=== PATIENT | female | born 1960 | race Caucasian/White ===

== ENCOUNTER → 2023-10-17 10:04 | Outpatient (REF) | payer OTHER, SELFPAY | LOC: HWRAD 10:04 | PROVIDERS: ATTENDING PHYSICIAN Nurse Practitioner | DX: M85.80 Other specified disorders of bone density and structure, unspecified site (principal) | CPT/HCPCS: 77080 ==

== ENCOUNTER → 2023-11-04 09:12 | Outpatient (REF) | payer OTHER, SELFPAY | LOC: HWWDC 09:12 | PROVIDERS: ATTENDING PHYSICIAN Nurse Practitioner | DX: Z12.31 Encounter for screening mammogram for malignant neoplasm of breast (principal) | CPT/HCPCS: 77063; 77067 ==

== ENCOUNTER 2024-06-07 08:52 | Emergency (ER) | payer OTHER, SELFPAY ==
[2024-06-07] VITALS (13 sets, daily range): BP systolic 110–157; BP diastolic 69–93; PULSE 60–91
--- NOTE | 2024-06-07 09:15 | ED.GENMED ---
History of Present Illness
General
Chief Complaint: Fainting/Passed Out
Source: patient
Exam Limitations: none
Time Seen by Provider: 06/07/24 09:15
Nursing documentation reviewed up to this point in time: agreed with
History of Present Illness
History of Present Illness:
Patient presents to ED secondary to witnessed syncopal episode, while she was at [employer] this morning. Patient states that while she was standing up, she felt lightheaded and sweaty, and sat down. However, her symptoms persisted and she
subsequently lost consciousness, lasting approximately couple minutes, with spontaneous resolution of symptoms. Denies confusion after waking up. Denies preceding chest palpitations, shortness of breath, chest pain, or nausea sensation. At the
time evaluation ED, patient states that her symptoms have resolved completely. Of note, patient states that she gave 1 pint of blood to [facility], which usually does every 60 days. Approximately 3 hours after giving blood yesterday
afternoon, patient does report similar lightheaded sensation, which she experienced, when she went upstairs to grab her book to read. She followed discharge instructions from [facility], and laid down, with her legs raised along with water,
which resolved her symptoms completely. Denies recent illness. Denies recent change in medications diet. In addition, this morning, patient does report having taken her blood pressure medication, without checking her blood pressure. Patient also
states that she has not been drinking of water during the day. Of note, over the past 8 months, she has approximate lost 80 pounds, with dietary changes along with medication. Denies previous history of passing out. Denies family history of heart
disease. Denies recent travel or surgery. Denies recent illness.
Review of Systems
Review of Systems
Allergies reviewed?: Yes
All Other Systems: ROS reviewed and negative except as documented in HPI and ROS
Constitutional: Reports no symptoms
EENT: Reports no symptoms
Respiratory: Reports no symptoms
Cardiac: Reports diaphoresis and syncope
ABD/GI: Reports no symptoms
Musculoskeletal: Reports no symptoms
Skin: Reports no symptoms
Neurological: Reports dizzy; Denies headache or weakness
Phy Exam
Physical Exam
Physical Exam:
Physical Exam
General: no apparent distress, not acutely ill. afebrile
Head: nc/at. eomi. no nystagmus noted.
Neck: supple. no meningeal signs.
Heart: s1/s2 regular rate and rhythm, no murmur.
Lungs: no acute respiratory distress. clear bilaterally
Abdomen: normal bowel sounds. not tender.
Neuro: alert and oriented x 3. no focal neurological deficits. normal speech. normal gait.
Skin: no rash
Psychiatric: well kept. interactive and cooperative
Extremities: no edema. no calf tenderness.
Course
Orders/Labs/Results
Orders:
Orders
06/07/24 09:00
ECG [Electrocardiogram (*1)] Urgent
Reason for Study: Syncope
EKG- Treatment ONCE
06/07/24 09:15
Orthostatic VS- Treatment ONCE
06/07/24 09:48
CMP [Comprehensive Metabolic Panel] Urgent
Complete Blood Count/With Diff Urgent
Ferritin Urgent
Comment: ADD ON
Iron Urgent
Total Iron Binding Urgent
Troponin I Urgent
06/07/24 10:39
EKG- Treatment ONCE
06/07/24 10:41
D-Dimer Urgent
06/07/24 12:00
Electrocardiogram (*1) Urgent
Reason for Study: Vertigo / Dizzy
06/07/24 12:07
Troponin I Urgent
06/07/24 12:44
Add On- LAB Urgent
Tests Added?: iron, ferritin, tibc
Abnormal Lab Results
06/07/24
09:48
Hgb 10.9 L g/dL
(12.0-16.0)
Hct 34.3 L %
(37.0-47.0)
MCV 80.5 L fL
(81.0-99.0)
MCH 25.6 L pg
(27.0-31.0)
MCHC 31.8 L g/dL
(33.0-37.0)
RDW 15.7 H %
(11.5-14.5)
Lymphocytes % 17.3 L %
(20.5-51.1)
% Saturation 12 L %
(20-50)
Ferritin 6.6 L ng/ml
(11.1-264.0)
Total Protein 6.1 L g/dl
(6.3-8.2)
06/07/24 09:48
06/07/24 09:48
Vital Signs
Initial and Last Documented VS:
Initial Vital Signs
Temp Pulse Resp BP Pulse Ox
98.1 F 68 18 145/84 98
06/07/24 08:52 06/07/24 08:52 06/07/24 08:52 06/07/24 08:52 06/07/24 08:52
Last Documented Vital Signs
Temp Pulse Resp BP Pulse Ox
98.1 F 68 23 110/90 98
06/07/24 08:52 06/07/24 13:00 06/07/24 13:00 06/07/24 13:00 06/07/24 13:00
MDM/Problems Addressed
MDM/Problems Addressed:
Blood work reviewed and discussed with patient, including anemia. Patient's last blood work noted in March 2024 revealed hemoglobin of 11.9. It is possible that with her recent dietary changes along with donation of blood, patient may have
experienced an acute blood loss, which may have contributed to her symptoms last night and this morning. Otherwise, less concern for any arrhythmia or any other cardiac etiology at this time. Patient will be discharged home in stable condition,
with recommendation to follow-up with her primary care visit for reevaluation, including repeat blood work within next 2 to 3 weeks. Advised caution when changing positions acutely over the next 48 hours. Recommended increased fluid intake along
with proper diet. Patient expresses understanding at the time of discharge.
*EKG
Interpreted by ED Provider?: Yes
EKG Intrepretation Date: 06/07/24
EKG Intrepretation Time: 09:15
Heart Rate: 3
Rate: normal
Rhythm: sinus
[place]: normal axis
Interval: normal interval
*Critical Care Note
Total Time (30-74mins, 75-104mins- exclusive of procedures): Not Applicable
ED Attending Note
-
Portions of this chart may have been created with voice recognition software.� Occasional wrong word or��sound alike� substitutions may have occurred due to the inherent limitations of voice recognition software.
Discharge Plan
Departure
Patient Disposition: Home (Routine Discharge)
Date of Disposition: 06/07/24
Time of Disposition: 13:03
Patient with high blood pressure during this ER visit?: Yes
Discharge Problem:
Syncope, Anemia
Instructions: Syncope (Fainting) (DC), Anemia in adults, possibly from low iron - ED discharge instructions
Referrals:
Evelyn Gallardo DO [Family Provider] -
Activity Restrictions/Additional Instructions:
As discussed, please follow-up with your primary care today for reevaluation, including repeat blood work in 2 to 3 weeks.
Interventions
Interventions:
*Risk Screen - Suicide Last Done: 06/07/24 09:30
*General Assessment Last Done: 06/07/24 09:30
*Neglect/Abuse Screening Last Done: 06/07/24 09:30
*ED- Fall Risk Assessment Last Done: 06/07/24 09:30
*ED COVID-19 Vaccine History Last Done: 06/07/24 09:30
*Nursing Disposition Last Done: 06/07/24 13:17
ED- Cardiac Assessment Last Done: 06/07/24 09:30
ED- Neurological Assessment Last Done: 06/07/24 09:30
Discharge Date and Time
Discharge Date/Time: 06/07/24 13:17
Print Language: AZERI
[2024-06-07 09:56] LABS: % Basophils 0.4 % (0-2); % Eosinophils 0.3 % (0-6); % Immature Granulocytes 0.1 % (0-0.5); % Lymphocytes 17.3 % (20.5-51.1); % Neutrophils 74.9 % (42.2-75.2); Absolute Lymphocytes 1.2 10^3/uL (1.2-3.4); Absolute Monocytes 0.5 10^3/uL (0.1-0.6); Absolute Neutrophils 5.4 10^3/uL (1.4-6.5); Hematocrit 34.3 % (37.0-47.0); Hemoglobin 10.9 g/dL (12.0-16.0); Mean Corp Hgb Conc. 31.8 g/dL (33.0-37.0); Mean Corpuscular Hgb 25.6 pg (27.0-31.0); Mean Corpuscular Volume 80.5 fL (81.0-99.0); Mean Platelet Volume 10.3 fL (7.4-10.4); Nucleated Red Blood Cells % 0 %; Platelet Count 274 10^3/uL (130-400); Red Blood Cell Count 4.26 10^6/uL (4.20-5.40); Red Cell Dist. Width 15.7 % (11.5-14.5); White Blood Cell Count 7.2 10^3/uL (4.8-10.8)
[2024-06-07 10:11] LABS: ALT (SGPT) 14 U/L (0-35); AST (SGOT) 19 U/L (14-36); Albumin 3.7 g/dl (3.5-5.0); Alkaline Phosphatase 84 U/L (38-126); Blood Urea Nitrogen 9 mg/dl (7-17); Calcium 9.2 mg/dl (8.4-10.2); Carbon Dioxide 26 mmol/L (22-30); Chloride 104 mmol/L (98-107); Glucose 73 mg/dl (70-99); Potassium 3.7 mmol/L (3.5-5.1); Sodium 137 mmol/L (135-145); Total Bilirubin 0.5 mg/dl (0.2-1.3); Total Protein 6.1 g/dl (6.3-8.2); eGFR > 60.00
[2024-06-07 10:20] LABS: Troponin I < 0.012 ng/ml
[2024-06-07 11:24] LABS: D-Dimer < 0.27 ug/mlFEU (0.00-0.50)
[2024-06-07 12:52] LABS: Troponin I < 0.012 ng/ml
[2024-06-07 13:16] LABS: Iron 40 ug/dl (37-170)
[2024-06-07 13:25] LABS: Percent Saturation 12 % (20-50); Total Iron Binding Capacity 319 ug/dl (265-497)
[2024-06-07 14:09] LABS: Ferritin 6.6 ng/ml (11.1-264.0)
== END 2024-06-07 13:17 | disposition home or self-care (01) ==
LOC: EMR 08:52
PROVIDERS: Emergency Medicine; EMERGENCY PHYSICIAN Emergency Medicine; FAMILY PHYSICIAN Internal Medicine
DX: R55 Syncope and collapse (principal); D64.9 Anemia, unspecified; I10 Essential (primary) hypertension
CPT/HCPCS: 99283; 80053; 82728; 83540; 83550; 84484; 85025; 85379; 93005

== ENCOUNTER 2024-11-04 12:30 | Inpatient (IN) | payer OTHER, SELFPAY ==
--- NOTE | 2024-10-06 15:31 | CM ---
Demographics: Confirmed
Living situation: two story home with friend
Support Person Post Operatively: Friend Sina, who lives with patient and will be her support
History of
VN: No
SNF: No
Outpatient: Appointment at [facility] 11/06
Has patient purchased required equipment: walker, cane, gel wraps.
PCP: Active
Pharmacy: [facility]
Post Operative Discharge Plan:Home with friend, and outpatient PT.
[2024-10-12 08:56] LABS: Hematocrit 38.4 % (37.0-47.0); Hemoglobin 12.3 g/dL (12.0-16.0); Mean Corp Hgb Conc. 32.0 g/dL (33.0-37.0); Mean Corpuscular Volume 80.8 fL (81.0-99.0); Platelet Count 297 10^3/uL (130-400); Red Cell Dist. Width 15.8 % (11.5-14.5)
[2024-10-12 09:31] LABS: ALT (SGPT) 23 U/L (0-35); AST (SGOT) 26 U/L (14-36); Albumin 4.2 g/dl (3.5-5.0); Alkaline Phosphatase 71 U/L (38-126); Blood Urea Nitrogen 14 mg/dl (7-17); Calcium 9.5 mg/dl (8.4-10.2); Carbon Dioxide 27 mmol/L (22-30); Chloride 104 mmol/L (98-107); Glucose 70 mg/dl (70-99); Potassium 3.9 mmol/L (3.5-5.1); Sodium 138 mmol/L (135-145); Total Protein 6.8 g/dl (6.3-8.2); eGFR > 60.00
[2024-10-12 09:57] LABS: Glycohemoglobin (HgbA1c) 5.0 % (4.0-5.6)
[2024-10-12 11:16] VITALS: BMI 30.6
[2024-10-12 12:21] LABS: Vitamin D, 25-OH*** 40.5 ng/mL (30-80)
[2024-10-27 09:13] VITALS: BMI 30.6
[2024-11-04] VITALS (10 sets, daily range): BP systolic 114–141; BP diastolic 53–92
[2024-11-04] MEDS: NORMOSOL-R/PLASMALYTE-A 1000 IV ×2 (12:46→19:54)
[2024-11-04] MEDS: CELEBREX 200 MG PO (12:49)
[2024-11-04] MEDS: TYLENOL 650 MG PO ×2 (12:49→19:57)
--- NOTE | 2024-11-04 14:43 | W.PN.UPDATE ---
Update Note
Progress Note Update
R knee OA s/p R TKA w/ Dr Trejo 11/04/24
- EARLY DISCHARGE
DVT prophylaxis - ASA, b/l venous foot pumps
HTN - + parameters - monitor BP
PACs/PVCs - monitor on tele
HLD
Hypothyroidism
Osteopenia
ADHD
Insomnia
Vitamin D deficiency
Obesity, BMI 31.1
Remote tobacco abuse
[2024-11-04] MEDS: ROXICODONE 5 MG PO (17:40)
--- NOTE | 2024-11-04 17:48 | OR.RPT ---
Addendum entered and electronically signed by Jose Alejandro Trejo MD 11/04/24 17:55:
Correction for IMPLANTS:
- Jose Guadalupe Persona CR Femur, size 8
- Jose Guadalupe Persona tibia base plate, size D
- Jose Guadalupe Persona medial constrained articular surface, 11 mm
- All-polyethylene patellar component, size 32
- DJO [place] bone cement
Original Note:
Operative Report
Operative Report
Orthopaedic Surgery Operative Note
DATE OF OPERATION: 11/04/2024
PREOPERATIVE DIAGNOSES: Osteoarthritis, right knee.
POSTOPERATIVE DIAGNOSES: Osteoarthritis, right knee.
OPERATION PERFORMED:
1) Right total knee arthroplasty (CPT 08580)
2) Intraosseous administration of analgesic (CPT 84567)
SURGEON: Jose Alejandro Trejo MD
ASSISTANTS: Robe Peres PA-C who helped with patient and limb positioning and retraction
ANESTHESIA: Spinal by anesthesia plus intraoperative infusion of morphine into the tibial metaphysis by Dr. Trejo
COMPLICATIONS: None.
ESTIMATED BLOOD LOSS: 20mL
DRAINS: None
TOURNIQUET TIME: 50 minutes.
IMPLANTS:
- Jose Guadalupe Persona CR Femur, size 10
- Jose Guadalupe Persona tibia base plate, size E
- Jose Guadalupe Persona medial constrained articular surface, 11 mm
- All-polyethylene patellar component, size 32
- DJO [place] bone cement
INDICATIONS: The patient presented to my office with debilitating right knee pain due to osteoarthritis. We reviewed the natural history of this problem, as well as the risks, benefits, and alternatives of various treatment options. The patient
exhausted all nonoperative treatment options and wished to proceed with knee replacement surgery. The patient understood the risks which included, but were not limited to, bleeding, infection, failure to relieve pain, more pain than preop, damage to
blood vessels and nerves, need for reoperation, mechanical failure of the implants, wound healing problems, stiffness, instability, blood clot, pulmonary embolism, myocardial infarction, pneumonia, arrhythmia, CVA, and . The patient accepted
these risks and wished to proceed. All questions were answered, and informed consent was obtained.
PROCEDURE IN DETAIL: The patient was identified in the preoperative holding area. The right knee was identified as the operative site. The patient was taken in the operating room and placed in a supine position on the operating table. Spinal
anesthesia was performed. IV antibiotics and tranexamic acid were administered. An SCD was placed on the left lower extremity. A well-padded tourniquet was placed on the proximal thigh. All bony prominences were well padded. The right lower
extremity was prepped and draped in the usual sterile fashion.
We performed a surgical time-out. An interarticular block was performed with local anesthetic with epinephrine. The limb was exsanguinated with an Esmarch bandage, then the tourniquet was inflated to 250 mmHg. I performed interosseous administration
of morphine-saline solution via a Jamshidi style intraosseous needle into the proximal medial tibial metaphysis as described by Chris Allan MD. This was performed to aid in pain control. A midline skin incision was made followed by a medial
parapatellar arthrotomy. A subperiosteal peel was performed on the medial tibia. I excised part of the infrapatellar fat pad to improve our visualization as well as tissue over anterior femur. The patella was everted and the knee was flexed. I
excised the remnants of the anterior and posterior cruciate ligaments as well as tibial and femoral osteophytes with rongeurs.
The knee was flexed, and the extramedullary tibial cutting guide was aligned. Bailey was aligned at neutral, rotation was centered on the tibial tubercle, and coronal alignment was aligned with the mechanical axis of the tibia and center of the ankle
joint. The cut height was 10mm off the lateral tibia joint surface. The guide was secured into place. The MCL and LCL were protected. The tibia surface was cut. The cut surface was inspected after removal to ensure appropriate height and slope based
on the preoperative plan. The cut was checked with a drop alisha. It was centered nicely at the ankle.
A drill was used to open the femoral canal. The intramedullary distal femoral cutting guide was inserted into the femur. This was set at 5 degrees +0. This was secured into place with three pins. The cut level was checked with an messi wing. The
distal femur was cut through the cutting guide. The IM guide was reinserted to double check that the level of resection was flush and in appropriate alignment.
Rolla�s line and the transepicondylar axis were marked on the femur. The femoral sizing guide was applied to the anterior femur. Pins were inserted, and the 4-in-1 cutting guide was applied and secured into place. The rotation was compared to
Bibiana�s line, the transepicondylar axis, and the neutral tibia cut and was found to be appropriate. The width was checked and found to be appropriate and lateralized on the femur. The anterior, posterior, and chamfur cuts were made. A lamina
regional sales leader was used to open the flexion gap, and posterior osteophytes were removed with a curved osteotome. The remnant medial and lateral meniscus were also removed. I prophylactically cauterized the lateral geniculate arteries. A 10mm spacer block
was applied to the flexion gap and was noted to be balanced medially and laterally. The knee was extended, and the block showed symmetric to extension and flexion gaps.
The tibia was exposed and sized. Rotation was set in line with the tibial tubercle and congruent with the femur. The trial was secured into place with two pins. The trial femur was impacted into place, and a trial articular surface was placed. The
knee was taken through range of motion and noted to be stable throughout the arc of motion without gaping or excess tension. In extension, a measured resection of the patella was performed. The patella was sized, and lug holes were drilled. A trial
patella component was applied, and it was noted to track centrally throughout the arc of motion without need for further releases.
The trials were removed. The tibia keel was prepared with the punch and the drill. The bone surfaces were irrigated with sterile saline and dried. The cement was mixed in a vacuum mixer. Cement gun was used to apply cement to the tibial surface and
the undersurface of the tibial implant. Cement was pressurized into the tibial canal and tibia surface. The tibial component was impacted into place. Excess cement was removed. Cement was applied to the femoral surface and the femoral component. The
femoral component was impacted into place, and excess cement removed. A trial articular surface was inserted, and the knee was extended while the cement polymerized. The tourniquet was let down, and meticulous hemostasis was achieved. Dilute
betadine was poured into the wound and allowed to soak for 3 minutes. The knee was irrigated with copious normal saline.
Once the cement was polymerized, the trial articular surface was removed. Any excess cement was removed. The knee was trialed, and the final articular surface was selected and inserted into the tibial locking mechanism. The knee was reduced. A fresh
drape was applied to the surgical field.
The arthrotomy was closed with 0-PDS. Once closed, an interarticular block was performed with local anesthetic with epi. The deep dermal layer was closed with 2-0 PDS, and the subcuticular skin was closed with 3-0 monocryl. A Dermabond Prineo
dressing was applied to the skin in full flexion. Once this was completely dry, a sterile waterproof dressing was applied.
The anesthesia team performed an adductor canal block in the OR. The patient awoke from anesthesia without any difficulties. The sponge and instrument counts were correct x2 at the end of the case.
Sunday Trejo MD
--- NOTE | 2024-11-04 19:28 | PTCARENOTE ---
1845 Pt arrived from PACU. report passed along to night stocker nurse.
[2024-11-04] MEDS: ASPIRIN 325 MG PO (19:54)
[2024-11-04] MEDS: ORETIC 25 MG PO (19:55)
[2024-11-04] MEDS: CRESTOR 5 MG PO (19:55)
[2024-11-04] MEDS: COLACE 100 MG PO (19:56)
[2024-11-04] MEDS: SENOKOT 17.2 MG PO (19:56)
[2024-11-04] MEDS: DECADRON 4 MG PO (19:56)
[2024-11-04] MEDS: BACTROBAN 2% OINTMENT 1 APPLIC NASAL (20:39)
[2024-11-04] MEDS: ANCEF 5 IV (22:11)
[2024-11-04] MEDS: NEURONTIN 300 MG PO (22:11)
[2024-11-04] MEDS: PEPCID 20 MG PO (22:11)
[2024-11-05] MEDS: TYLENOL 650 MG PO ×3 (00:14→07:40)
[2024-11-05] MEDS: ZOFRAN 4 MG IV (00:30)
[2024-11-05] MEDS: ROXICODONE 10 MG PO (00:39)
[2024-11-05 03:02] VITALS: BP 119/63
[2024-11-05] MEDS: ANCEF 5 IV (05:58)
[2024-11-05] MEDS: SYNTHROID 100 MCG PO (05:59)
[2024-11-05] MEDS: ROXICODONE 5 MG PO (05:59)
[2024-11-05 07:20] VITALS: BP 143/73
[2024-11-05] MEDS: BACTROBAN 2% OINTMENT 1 APPLIC NASAL (07:39)
[2024-11-05] MEDS: ASPIRIN 325 MG PO (07:39)
[2024-11-05] MEDS: MOBIC 15 MG PO (07:40)
[2024-11-05] MEDS: CRESTOR 5 MG PO (07:40)
[2024-11-05] MEDS: COLACE 100 MG PO (07:40)
[2024-11-05] MEDS: DECADRON 4 MG PO (07:40)
[2024-11-05] MEDS: SENOKOT 17.2 MG PO (07:40)
[2024-11-05] MEDS: ORETIC PO (07:41)
[2024-11-05 08:20] VITALS: BP 133/72
[2024-11-05 09:36] VITALS: BP 115/68; PULSE 64; O2SAT 97
--- NOTE | 2024-11-05 09:48 | CM ---
Cm reviewed medical records. Patient is medically ready for discharge.
PLAN: Home with outpatient PT.
--- NOTE | 2024-11-05 10:03 | W.PN.ORTHO ---
Today's Communication / Plan
-
D/c today since clinically stable, did well w/ PT and OT.
Pt understands she has Zofran prn for N/V.
Assessment
.
Distal Motor Intact: Yes
Dressing:
Clean, dry and intact.
Assessment:
R knee OA s/p R TKA w/ Dr Trejo 11/04/24
- EARLY DISCHARGE
DVT prophylaxis - ASA, b/l venous foot pumps
PONV - likely from taking multiple medications w/o food - resolved w/o further intervention
- Did advise taking meds w/ food, spacing out meds for easier digestion
- Did Rx Zofran q6hprn for d/c
HTN - + parameters - BPs overall stable
PACs/PVCs - maintaining NSR on tele
HLD
Hypothyroidism
Osteopenia
ADHD
Insomnia
Vitamin D deficiency
Obesity, BMI 31.1
Remote tobacco abuse
Plan
.
Surgery / Date: R TKA w/ Dr Trejo 11/04/24
DVT Prophylaxis: Aspirin
Activity:
Out of bed.
PT/OT
Discharge Plan: Home w/ Outpatient PT
Subjective
.
.:
Patient resting comfortably in her chair.
R knee pain overall well controlled w/ current pain meds.
Did well w/ PT and OT this AM.
Episode of N/V while working w/ PT. Reportedly feels well now and still eager to go home.
Vital Signs and Labs
.
Vital Signs and Labs:
Lab Results
10/12/24 07:32
10/12/24 07:32
Temp Pulse Resp BP Pulse Ox
98.9 F 64 16 143/75 98
11/05/24 07:20 11/05/24 07:41 11/05/24 07:20 11/05/24 07:41 11/05/24 07:20
Non-invasive Hgb result: 10.5
Physical Exam
-
HEENT: No pallor, cyanosis, or jaundice. Throat clear.
NECK: Supple. No JVD.
RESPIRATORY: Lungs clear to auscultation.
CVS: S1, S2 normal. RRR.�
ABDOMEN: Soft, non-tender. No distension. Obese.
EXTREMITIES: Strength equal, no calf pain with palpation/dorsiflexion. Calves soft.
KNITTING DEMONSTRATOR: AOx3. No focal deficits. sleeve setter safety stitch grossly intact
--- NOTE | 2024-11-05 10:11 | W.DS.TRANS ---
DC Summary - District Branch Manager
-
Discharge Instructions:
Sleep Apnea Risk Low
Discharge Diagnosis/Procedures R knee OA s/p R TKA w/ Dr Trejo 11/04/24
Diet Regular
Additional Diets Adequate hydration, minimize opioids, and wear
TEDs stockings to prevent low blood pressure/
dizziness.
Activity With Walker,As tolerated
Driving Restrictions Not until seen by your Dr
Bathing Restrictions OK to Shower
Other Services PT
Wound Care Leave dressing on until seen by surgeon's office
for follow-up in 2 weeks.
Instructions:
Stand-Alone Forms: Total Hip/Knee Replacement D/C
Changes to Home Medications: Yes
Discharge Medications:
DC Medications w/original date entered in [employer]
diphenhydramine HCl 50 mg capsule 50 mg PO HS PRN sleep 10/09/24
levothyroxine 100 mcg tablet 100 mcg PO DAILY Thyroid 10/09/24
multivitamin with minerals-folic acid 0.4 mg tablet (One-A-Day Women's 50 Plus) 1 tab PO DAILY Supplement 10/09/24
mupirocin 2 % topical ointment 1 applic topical BID infection prevention #1 tube 10/09/24
rosuvastatin 5 mg tablet 5 mg PO DAILY High Cholesterol 10/09/24
semaglutide 2.5 mg/mL subcutaneous solution 1 mg SC QWEEK WEIGHT LOSS 10/09/24
dexamethasone 4 mg tablet 4 mg PO BID inflammation #6 tabs 10/12/24
famotidine 20 mg tablet 20 mg PO HS GI prophylaxis #30 tabs 10/12/24
gabapentin 300 mg capsule 300 mg PO HS sleep/pain #10 caps 10/12/24
meloxicam 15 mg tablet 15 mg PO DAILY anti-inflammatory #14 tabs 10/12/24
ondansetron 4 mg disintegrating tablet 4 mg PO Q6H PRN n/v #20 tabs 10/12/24
oxycodone 5 mg tablet 5 mg PO Q6H PRN 1 tab moderate pain, 2 tabs severe pain #30 tabs 10/12/24
acetaminophen 500 mg tablet (Tylenol Extra Strength) 1,000 mg (2 x 500 mg) PO Q6H #60 tabs 11/05/24
aspirin 325 mg tablet 325 mg PO DAILY #30 tabs 11/05/24
docusate sodium 100 mg capsule 100 mg PO BID #30 caps 11/05/24
hydrochlorothiazide 25 mg tablet 25 mg PO DAILY Fluid Retention/Swelling #1 tab 11/05/24
magnesium hydroxide 400 mg/5 mL oral suspension (Milk of Magnesia) 30 ml PO HS Constipation #3,000 mL 11/05/24
sennosides 8.6 mg tablet (Belkis-bennie) 17.2 mg (2 x 8.6 mg) PO BID #30 tabs 11/05/24
Home Medication Changes
dexamethasone 4 mg tablet 4 mg PO BID inflammation #6 tabs 10/12/24
famotidine 20 mg tablet 20 mg PO HS GI prophylaxis #30 tabs 10/12/24
gabapentin 300 mg capsule 300 mg PO HS sleep/pain #10 caps 10/12/24
meloxicam 15 mg tablet 15 mg PO DAILY anti-inflammatory #14 tabs 10/12/24
ondansetron 4 mg disintegrating tablet 4 mg PO Q6H PRN n/v #20 tabs 10/12/24
oxycodone 5 mg tablet 5 mg PO Q6H PRN 1 tab moderate pain, 2 tabs severe pain #30 tabs 10/12/24
acetaminophen 500 mg tablet (Tylenol Extra Strength) 1,000 mg (2 x 500 mg) PO Q6H #60 tabs 11/05/24
aspirin 325 mg tablet 325 mg PO DAILY #30 tabs 11/05/24
docusate sodium 100 mg capsule 100 mg PO BID #30 caps 11/05/24
magnesium hydroxide 400 mg/5 mL oral suspension (Milk of Magnesia) 30 ml PO HS Constipation #3,000 mL 11/05/24
sennosides 8.6 mg tablet (Belkis-bennie) 17.2 mg (2 x 8.6 mg) PO BID #30 tabs 11/05/24
Pending Results: No
== END 2024-11-05 11:03 | disposition home or self-care (01) | DRG 470 ==
LOC: 2 SOUTH 12:30
PROVIDERS: ADMITTING PHYSICIAN Orthopaedic Surgery; FAMILY PHYSICIAN Internal Medicine
PROC: 0SRC0J9 Replacement of Right Knee Joint with Synthetic Substitute, Cemented, Open Approach (ICD-10-PCS; 2024-11-04)
DX: M17.11 Unilateral primary osteoarthritis, right knee (principal); I10 Essential (primary) hypertension; I49.1 Atrial premature depolarization; I49.3 Ventricular premature depolarization; Z68.31 Body mass index [BMI] 31.0-31.9, adult; E66.9 Obesity, unspecified; E78.5 Hyperlipidemia, unspecified; E03.9 Hypothyroidism, unspecified; M85.80 Other specified disorders of bone density and structure, unspecified site; E55.9 Vitamin D deficiency, unspecified; Z87.891 Personal history of nicotine dependence; F90.9 Attention-deficit hyperactivity disorder, unspecified type; G47.00 Insomnia, unspecified
CPT/HCPCS: 36415; 73560; 80053; 82306; 83036; 85027; 87070; 93005; 97116; 97162; 97166

== ENCOUNTER → 2025-02-02 10:50 | Outpatient (REF) | payer OTHER, SELFPAY | LOC: HWWDC 10:50 | PROVIDERS: ATTENDING PHYSICIAN Internal Medicine | DX: Z12.31 Encounter for screening mammogram for malignant neoplasm of breast (principal) | CPT/HCPCS: 77063; 77067 ==